=== PATIENT | female | born 1930 | race Caucasian/White ===

== ENCOUNTER 2021-01-23 21:56 | Inpatient (IN) | payer MEDICARE, MEDICAID ==
[~2021-01-23] VITALS: Ht 167.6 cm; Wt 88.9 kg
[2021-01-23 21:57] VITALS: BP 130/48
[2021-01-23] MEDS ORDERED: VITAMIN D325 MC5 PO (22:09)
[2021-01-23] MEDS ORDERED: LISINOPRIL20 MG PO (22:09)
[2021-01-23] MEDS ORDERED: ASA81BEC PO (22:09)
[2021-01-23] MEDS ORDERED: ATORVASTATIN CA80 MG PO (22:09)
[2021-01-23] MEDS ORDERED: CARVEDILOL25 MG PO (22:10)
[2021-01-23] MEDS ORDERED: CLONIDINE HCL0.1 M1 PO (22:10)
[2021-01-23] MEDS ORDERED: NYSTATIN1 EA10 TOP (22:11)
[2021-01-23 22:37] LABS: BE 2.6 mmol/L (-2 to +3); PCO2 48.2 mmHg (35.0-45.0); pH 7.389 (7.340-7.450)
--- NOTE | 2021-01-23 22:46 | NUR ---
LEYDA FROM [facility] CALLED AND REPORT WAS PROVIDED. PT WAS SLEEPING ALL DAY WITH COUGH. PT REFUSED TO EAT OR DRINK FLUIDS. COUGH WORSENED TONIGHT AND PT WAS SENT IN BY PCP. LEYDA CAN BE CONTACTED AT [phone]
[2021-01-23 22:51] LABS: ABSOLUTE BASOPHILS 0.1 thou/uL (0.0-0.2); ABSOLUTE EOSINOPHILS 0.1 thou/uL (0.0-0.7); ABSOLUTE LYMPHOCYTES 1.3 thou/uL (0.8-5.3); ABSOLUTE MONOCYTES 0.6 thou/uL (0.0-1.2); ABSOLUTE NEUTROPHILS 6.4 thou/uL (1.6-8.1); BASOPHILS 0.7 %; EOSINOPHILS 0.7 %; HEMATOCRIT 43.2 % (37.0-47.0); HEMOGLOBIN 14.7 gm/dL (12.0-15.0); LYMPHOCYTES 15.9 %; MCH 29.8 pg (26.0-34.0); MCHC 34.1 g/dL (28.0-37.0); MCV 87.6 fL (80.0-100.0); MONOCYTES 6.6 %; MPV 8.7 fl. (7.2-11.1); NUCLEATED RBCS 0 /100WBC; PLATELET COUNT* 184 thou/uL (150-400); POLYS 76.1 %; RBC 4.93 mil/uL (4.20-5.00); RDW-CV 14.2 % (10.5-14.5); WBC 8.4 thou/uL (4.0-11.0)
[2021-01-23 23:02] LABS: CALCIUM 8.9 mg/dL (8.5-10.1); CREATININE 1.3 mg/dL (0.6-1.3); POTASSIUM 4.2 mmol/L (3.5-5.1)
[2021-01-23 23:12] LABS: ALBUMIN 3.4 g/dL (3.4-5.0); MAGNESIUM 2.1 mg/dL (1.8-2.4); TOTAL BILIRUBIN 0.8 mg/dL (<0.1-1.0); TOTAL PROTEIN 7.7 g/dL (6.4-8.2)
[2021-01-23 23:38] LABS: URINE BILIRUBIN NEGATIVE (Negative); URINE BLOOD 2+ (Negative); URINE CLARITY SL CLOUDY; URINE COLOR YELLOW; URINE GLUCOSE-RANDOM NEGATIVE (Negative); URINE KETONES NEGATIVE (Negative); URINE NITRITE-REFLEX NEGATIVE (Negative); URINE PROTEIN 2+ (Negative); URINE SPECIFIC GRAVITY >= 1.030 (1.005-1.030)
[2021-01-23 23:40] LABS: URINE LEUKOCYTES-REFLEX 2+ (Negative)
[2021-01-24] VITALS (7 sets, daily range): BP systolic 108–175; BP diastolic 37–74
[2021-01-24 00:12] LABS: CASTS None Seen /LPF (None Seen); SQUAMOUS 4-10 Moderate /LPF (0-3)
[2021-01-24 00:13] LABS: URINE RBC 3-10 Few /HPF (0-2); URINE WBC-REFLEX >25 Many /HPF (0-5)
[2021-01-24 00:14] LABS: BACTERIA-REFLEX 1-9 Few /HPF (None Seen); CRYSTALS None Seen /LPF (None Seen)
--- NOTE | 2021-01-24 01:54 | NUR ---
PT ADMITTED TO FLOOR PER CART ACCOMPANIED BY ER STAFF WITH BELONGINGS. PT CONFUSED, AO TO SELF. PULLING OFF OXYGEN AND SLAPPING AT STAFF WHEN APPLYING TELE MONITOR AND GETTING PT TRANSFERRED FROM CART TO BED. CALL LITE IN EASY REACH, BED ALRM ON FOR SAFETY. PT SETTLED SAFELY IN BED, TELE MONITOR ON AND OPERATING AND O2 3L NC ON. WILL CONTINUE TO MONITOR AND PROVIDE CARES NEEDED.
--- NOTE | 2021-01-24 06:45 | NUR ---
NEW ADMIT OVERNIGHT, PULLED OUT IV AND SWATTING AT STAFF WITH CARES UPON ADMISSION BUT MORE COOPERATIVE THIS MORNING. RFA IV FLUIDS INFUSING PER PUMP. INCONTINENT URINE, RUEL CARE GIVEN, BARRIER CREAM APPLIED. ROOM AIR THIS MORNING 92%. TO HAVE VQ SCAN TODAY. TELE SR. CONGESTED COUGH HEARD OCC. CALL LITE IN EASY REACH, BED ALARM ON FOR SAFETY.
[2021-01-24] MEDS ORDERED: CLONIDINE HCL0.1 MG PO (10:10)
--- NOTE | 2021-01-24 18:50 | NUR ---
RECEIVED REPORT. ASSUMED CARE OF PT AROUND 0730. AM ASSESSMENT AND VITALS COMPLETED CHARTED. MED REC COMPLETED AND CONFIRMED WITH NURSE AT [facility]. FAMILY WOULD LIKE FOR PT TO HAVE AN OUTPATIENT REFERRAL FOR AN PARQUET FLOOR LAYER TO HELP MANAGE INSULIN DOSAGES AT THE PRISON. PT CONFUSED AND IMPULSIVE THIS SHIFT, BUT PLEASANT AND REDIRECTABLE. PULLED IV OUT. INCONTINENT OF BOWEL AND BLADDER AT TIMES. GOOD APPETITE THIS AFTERNOON AND EVENING. MOOD AND AWARENESS IMPROVED THROUGHOUT THE SHIFT. PT REFUSED VQ SCAN THIS AM. UPDATE GIVEN TO PT'S [facility] BY DR NIXON AND THIS RN. FILM WAXER IN PLACE. FALL PRECAUTIONS IN PLACE. CALL LIGHT WITHIN REACH.
--- NOTE | 2021-01-25 05:20 | NUR ---
PT SLEPT MOST OF SHIFT. ASSESSMENT DOCUMENTED. MEDS GIVEN PER E-SEP. IV PATENT, FLUIDS INFUSING. NO REPORTS OF PAIN. PT IMPULSIVE THROUGH SHIFT, CLIMBING OUT OF BED. FALL PRECAUTIONS IN PLACE. WILL CONTINUE WITH PLAN OF CARE.
[2021-01-25 05:36] LABS: ALBUMIN 2.8 g/dL (3.4-5.0); CALCIUM 8.1 mg/dL (8.5-10.1); CREATININE 1.6 mg/dL (0.6-1.3); MAGNESIUM 2.2 mg/dL (1.8-2.4); TOTAL BILIRUBIN 0.3 mg/dL (<0.1-1.0); TOTAL PROTEIN 6.8 g/dL (6.4-8.2)
[2021-01-25 07:17] LABS: HEMATOCRIT 39.3 % (37.0-47.0); HEMOGLOBIN 12.9 gm/dL (12.0-15.0); MCH 28.9 pg (26.0-34.0); MCHC 32.9 g/dL (28.0-37.0); MCV 87.8 fL (80.0-100.0); RBC 4.48 mil/uL (4.20-5.00); RDW-CV 14.2 % (10.5-14.5); WBC 11.6 thou/uL (4.0-11.0)
[2021-01-25 08:54] VITALS: BP 133/52
--- NOTE | 2021-01-25 09:55 | EKG ---
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1930 Requested By: Tyra Gomez Order Number: [id number] MD: Tonio Jimenez Measurements Intervals [place] Rate: 71 P: 26 SD: 171 QRS: -110 QRSD: 153 T: -8 QT: 422 QTc: 459 Interpretive Statements Sinus rhythm Ventricular premature complex Probable left atrial enlargement Right bundle branch block Inferior infarct, old No previous ECG available for comparison Electronically Signed On 01-25-2021 9:55:18 CDT by Tonio Jimenez [email or web address] <ELECTRONICALLY SIGNED> By: Tonio Jimenez MD, [facility] 01/25/21 0955 11 11 Tonio Jimenez MD, [facility] /EPI
[2021-01-25 12:17] VITALS: BP 118/58
--- NOTE | 2021-01-25 14:42 | 2DMMODE ---
[place] [address] 2 D/M-MODE ECHOCARDIOGRAM Name: FRIDA LOWERY Room: [address] IN .R.#: [id number] Admission: 01/23/21 Attend Phys: Adali Herring, Discharge: Date of : [birth year] Date of Service: 01/25/21 1442 Report #: [id number] THIS REPORT FOR: cc: Giuseppe Howard MD, Michael H. MD Blick, David R. MD [facility] ~ APPROVED REPORT Study performed: 01/25/2021 10:14:18 EXAM: Comprehensive 2D, Doppler, and color-flow Echocardiogram Patient Location: Out-Patient BSA: 1.96 HR: 72 bpm BP: 125/40 mmHg Other Information Study Quality: Good Indications Elevated BNP 2D Dimensions IVSd: 16.88 (7-11mm) LVOT Diam: 20.89 (18-24mm) LVDd: 50.76 mm PWd: 12.14 (7-11mm) Ascending Ao: 32.42 (22-36mm) LVDs: 32.99 (25-40mm) Aortic Root: 33.99 mm Volumes Left Atrial Volume (Systole) LA ESV Index: 20.30 mL/m2 Aortic Valve AoV Peak Siddhartha.: 1.75 m/s AO Peak Gr.: 12.22 mmHg LVOT Max P.67 mmHg AO Mean Gr.: 6.40 mmHg LVOT Mean P.71 mmHg LVOT Max V: 0.96 m/s AO V2 VTI: 36.65 cm LVOT Mean V: 0.60 m/s KELECHI (VTI): 1.69 cm2 LVOT V1 VTI: 18.05 cm Mitral Valve E/A Ratio: 0.72 [place] [address] 2 D/M-MODE ECHOCARDIOGRAM Name: FRIDA LOWERY Vangie Room: [address] IN [facility]#: [id number] Admission: 01/23/21 Attend Phys: Adali Herring, Discharge: Date of : [birth year] Date of Service: 01/25/21 1442 Report #: [id number] MV Decel. Time: 329.44 ms MV E Max Siddhartha.: 0.85 m/s MV PHT: 95.54 ms MVA (PHT): 2.30 cm2 TDI E/Lateral E': 10.63 E/Medial E': 9.44 Medial E' Siddhartha.: 0.09 m/s Lateral E' Siddhartha.: 0.08 m/s Pulmonary Valve PV Peak Siddhartha.: 1.21 m/s PV Peak Gr.: 5.89 mmHg Tricuspid Valve RAP Estimate: 5.00 mmHg TR Peak Gr.: 27.11 mmHg RVSP: 32.11 mmHg PA Pressure: 32.11 mmHg Left Ventricle The left ventricle is normal size. There is normal LV segmental wall motion. Mild concentric left ventricular hypertrophy. Left ventricular systolic function is normal. The left ventricular ejection fraction is within the normal range. LVEF is 55-60%. Grade I - abnormal relaxation pattern. Right Ventricle The right ventricle is normal size. The right ventricular systolic function is normal. Atria The left atrium size is normal. The right atrium size is normal. Aortic Valve Aortic valve is mildly calcified. No aortic regurgitation is present. There is no aortic valvular stenosis. Mitral Valve The mitral valve is normal in structure. Mild mitral regurgitation. No evidence of mitral valve stenosis. Tricuspid Valve The tricuspid valve is normal in structure. Mild tricuspid regurgitation[place] [address] 2 D/M-MODE ECHOCARDIOGRAM Name: FRIDA LOWERY Room: [address] IN [facility]#: [id number] Admission: 01/23/21 Attend Phys: Adali Herring, Discharge: Date of : [birth year] Date of Service: 01/25/21 1442 Report #: [id number] The pulmonary valve is normal in structure. There is no pulmonic valvular regurgitation. Great Vessels The aortic root is normal in size. IVC is normal in size and collapses >50% with inspiration. Pericardium There is no pericardial effusion. <Conclusion> Mild concentric left ventricular hypertrophy. LVEF is 55-60%. Aortic valve is mildly calcified. Mild mitral regurgitation. <ELECTRONICALLY SIGNED> By: Tonio Jimenez MD, [facility] 01/25/21 1442 1442 144 Tonio Jimenez MD, FACC /INF
[2021-01-25 16:34] VITALS: BP 126/50
--- NOTE | 2021-01-25 16:50 | NUR ---
hilda completed the initial assessment. hilda s/w pt's granddtr, sena as pt is a poor historian d/t dementia dx. pt resides at [facility] in [place], as of 2020. prior to that pt lives w/her dtr, who 4 months ago. pt uses a walker for gait, but "doesnt get around very well." /sena. pt requires assistance w/adls. pt to rtrn to ltc facility at d/c.
[2021-01-25 19:30] VITALS: BP 171/82
--- NOTE | 2021-01-26 05:19 | NUR ---
PT SLEPT ON AND OFF THIS SHIFT. ASSESSMENT DOCUMENTED. MEDS GIVEN PER E-SEP. IV PATENT, FLUIDS FINISHED INFUSING. FALL PRECAUTIONS IN PLACE. PT VERY IMPULSIVE THIS SHIFT, CLIMBING OUT OF BED, HARD TO REDIRECT. WILL CONTINUE WITH PLAN OF CARE.
[2021-01-26 08:00] VITALS: BP 179/69
--- NOTE | 2021-01-26 12:37 | NUR ---
POC IS CONTINUED HOSPITALIZATION D/T PNEUMONIA AND UTI DX. THE CURRENT PLAN IS FOR PT TO RTRN TO [facility] [place].
--- NOTE | 2021-01-26 14:31 | NUR ---
THIS PUBLIC HEALTH DIRECTOR IS IN AGREEMENT WITH DOCUMENTED NOTE AND RECOMMENDATIONS BY [employer]ON[employer] FOR THIS DAY. PIYUSH GARRETTT
[2021-01-26 16:32] VITALS: BP 114/50
--- NOTE | 2021-01-26 18:04 | NUR ---
PT PROGRESSING TOWARDS DC GOALS. PT DENIES PAIN. PT UP WITH SBA TO HER RECLINER. PT CONTINUES TO BE IMPULSIVE JUST GETTING UP WHEN EVER SHE WANTS. PT HAS SALINE LOCK IN HER LEFT FOREARM FLUSHES WELL, DRESSING C/D/I. PT VERY SAVOONGA. VSS AFEBRILE. WILL CONTINUE TO MONITOR PLAN OF CARE.
[2021-01-26 19:45] VITALS: BP 116/89
--- NOTE | 2021-01-27 04:58 | NUR ---
PT ORIENTED TO SELF, FORGETFUL AND IMPULSIVE. 2L NC BUT PT DOES NOT KEEP IT ON. MEDS GIVEN ORDERED. NO C/O PAIN. INCONTINENT MOST OF THE TIME. UP TO BSC WITH MAX ASSIST. BED ALARM ON FOR SAFETY. CALL LIGHT WITHIN REACH.
[2021-01-27 05:07] LABS: HEMATOCRIT 38.5 % (37.0-47.0); HEMOGLOBIN 12.8 gm/dL (12.0-15.0); MCH 29.1 pg (26.0-34.0); MCHC 33.2 g/dL (28.0-37.0); MCV 87.7 fL (80.0-100.0); MPV 9.5 fl. (7.2-11.1); RBC 4.39 mil/uL (4.20-5.00)
[2021-01-27 05:11] LABS: CALCIUM 8.1 mg/dL (8.5-10.1); CREATININE 1.1 mg/dL (0.6-1.3); POTASSIUM 4.3 mmol/L (3.5-5.1)
[2021-01-27 05:23] VITALS: BP 142/72
[2021-01-27 08:30] VITALS: BP 149/71
[2021-01-27 12:06] VITALS: BP 155/50
--- NOTE | 2021-01-27 13:07 | NUR ---
POC" ID FOLLOWING D/T UTI WITH ESBL. PT MAY D/C BACK TO [facility] W/PO ABX TODAY PENDING ID'S RECOMMENDATION.
[2021-01-27 16:00] VITALS: BP 158/64
[2021-01-27 19:45] VITALS: BP 165/78
[2021-01-28 04:09] LABS: HEMOGLOBIN 12.4 gm/dL (12.0-15.0); MCH 29.1 pg (26.0-34.0); MCHC 33.5 g/dL (28.0-37.0); MCV 86.8 fL (80.0-100.0); MPV 9.2 fl. (7.2-11.1); RBC 4.26 mil/uL (4.20-5.00); WBC 8.6 thou/uL (4.0-11.0)
[2021-01-28 04:16] LABS: CALCIUM 7.9 mg/dL (8.5-10.1); CREATININE 1.2 mg/dL (0.6-1.3); POTASSIUM 4.5 mmol/L (3.5-5.1)
--- NOTE | 2021-01-28 06:21 | NUR ---
PT SLEPT OFF AND ON OVERNIGHT, AO TO SELF, CAN BE IMPULSIVE AND COMBATIVE AT TIMES WITH CARES. SETTING BED ALRM OFF TRYING TO GET OOB TO GO TO BSC AT TIMES OVERNIGHT. UP WITH 2 ASSIST GB TO BSC. INCONTINENT URINE AT TIMES. HS ACCUCHECK 243, INSULIN GIVEN. O2 3L NC PT WILL ALLOW. AM LABS. RFA SL IV, ABX GIVEN ORDERED. PT TURNS INDEP IN BED, HIGH FALL RISK, FALL PRECAUTIONS IN PLACE. TAKES PILLS WHOLE WITH WATER. MED SURG STATUS, WILL BE TRANSFERRING TO ROOM 304 THIS MORNING. ID FOLLOWING FOR ABX TO TREAT ESBL URINE.
--- NOTE | 2021-01-28 07:29 | NUR ---
PATIENT TRANSFERED TO [place] FROM TELEMETRY AT [facility] [address]. REPORT GIVEN FROM NURSE SOLIS ON TELEMETRY. PATIENT ALERT TO SELF BUT HAS DEMENTIA. PATIENT RESTING COMFORTABLY IN ROOM. NURSE AGREES WITH ASSESSMENT. REPORT GIVEN TO DAY 3 [place] NURSE ORDAZ THAT WILL BE TAKING CARE OF PATIENT TODAY. FALL PRECAUTIONS IN PLACE AND NURSING TO CONTINUE MONITORING.
[2021-01-28 08:00] VITALS: BP 168/68
--- NOTE | 2021-01-28 12:54 | NUR ---
POC: WEAN O2 OR PT WILL NEED RES & EXERCISE OXIMETRY TO DETERMINE O2 NEEDS. PT WILL RTRN TO [facility].
[2021-01-28 16:18] VITALS: BP 150/66
--- NOTE | 2021-01-28 18:00 | NUR ---
PATIENT RESTING IN BED. PATIEN TIS UP STANDBY ASSIST. PATIENT IS IMPULSIVE AND HAS SET OFF BED ALARM MULTIPLE TIMES THROUGHOUT DAY. PATIENT IS INCONTINENT OF URINE. PATIENT HAS GOOD APPETITE, MEAL SETUP IS REQUIRED. PATIENT DENIES ANY PAIN. BED/CHAIR ALARMS SET. CALL LIGHT WITHIN REACH, HOWEVER HAS NOT USED. WILL CONTINEU TO MONITOR.
[2021-01-28 20:00] VITALS: BP 119/73
[2021-01-29 03:43] LABS: HEMOGLOBIN 12.8 gm/dL (12.0-15.0); MCH 29.3 pg (26.0-34.0); MCHC 33.6 g/dL (28.0-37.0); MCV 87.3 fL (80.0-100.0); MPV 8.8 fl. (7.2-11.1); RBC 4.35 mil/uL (4.20-5.00); RDW-CV 13.9 % (10.5-14.5); WBC 9.3 thou/uL (4.0-11.0)
[2021-01-29 04:00] LABS: ANION GAP < 0 mmol/L (7-16); BUN 36 mg/dL (7-18); CHLORIDE 106 mmol/L (98-107); CO2 35 mmol/L (21-32); CREATININE 1.1 mg/dL (0.6-1.3); GLUCOSE 160 mg/dL (70-99); POTASSIUM 4.4 mmol/L (3.5-5.1); SODIUM 140 mmol/L (136-145)
--- NOTE | 2021-01-29 05:15 | NUR ---
PT HAS SLEPT WELL OVERNIGHT, AWAKENS TRYING TO GET OOB TO USE BSC SETTING OFF BED ALARM. O2 3L NC. ACCUCHECK 218 INSULIN GIVEN ORDERED. INCONTINENT URINE AT TIME, RUEL CARE GIVEN. AM LABS. UP WITH ASSIST TO BSC. CONGESTED COUGH HEARD AT TIMES. KLETSEL DEHE W[place].RFA SL, ABX GIVEN ORDERED. CALL LITE IN EASY REACH, BED ALRM ON FOR SAFETY.
[2021-01-29 07:50] VITALS: BP 199/91
--- NOTE | 2021-01-29 08:51 | NUR ---
I have reviewed the documentation by SAE SU from 01/25/21 to 01/29/21 and I concur with it. SERGIO CHENG
[2021-01-29] MEDS ORDERED: BACTRIM DS TAB1 EACH PO (13:16)
[2021-01-29] MEDS ORDERED: PREDNISONE 20 M20 MG PO (13:16)
[2021-01-29] MEDS ORDERED: PEPCID20 MG PO (13:16)
--- NOTE | 2021-01-29 15:52 | NUR ---
LYNDSEY FAXED D/C ORDERS, O2 ORDER AND OXIMETRY NOTES TO [facility]. LYNDSEY SPK WITH LEYDA, "SPAR CAP BEVELER" AND MARIAMA PT'S RN TO INFORM OF O2 NEEDS AND DR. HANNON REQUEST TO HAVE [facility] SET UP OUTPATIENT OXIMETRY URGENTLY FOR PT. LYNDSEY ALSO CONTACTED PT'S GRANDDTR, ODALYS, AND INFORMED HER OF THE AFOREMENTIONED INFO. MARIAMA CONFIRMED SHE HAS O2 AND CONCENTRATOR AND TUBING IN PT ROOM AWAITING HER. LYNDSEY ARRANGED W/C AND O2 TRANSPORTATION WITH [facility]. ARNULFO CONFIRMED TRANSPORTATION BTWN [phone]. LYNDSEY NOTIFED US OF TIME. PT RN, SUSHMA, PROVIDED NUMBER TO CALL REPORT [phone]. FAX [phone]. US TO MAKE CHART COPY.
[2021-01-29 16:56] VITALS: BP 186/74
--- NOTE | 2021-01-29 18:15 | NUR ---
PATIENT DISCHARGED TO [facility]. REPORT CALLED TO [facility]. COPY OF CHART AND DISCHARGE ORDERS SENT WITH TRANSPORTER. PATIENT BELONGINGS PACKED. IV REMOVED. PATIENT ASSISTED TO WHEELCHAIR. PATIENT LEFT BY WHEELCHAIR VAN AT THIS TIME.
== END 2021-01-29 18:15 | DRG 177 ==
LOC: M.ERS 21:56 → M.2W 23:54 → M.TBA-ER 23:54 → M.2W 01-24 01:16 → M.3W 01-28 07:07 → M.2W 01-28 18:01
PROVIDERS: Emergency Medicine; Family Medicine; ADMIT Internal Medicine; ATTEND Internal Medicine
DX: J15.6 Pneumonia due to other Gram-negative bacteria (principal); G92 Toxic encephalopathy; K85.90 Acute pancreatitis without necrosis or infection, unspecified; J96.01 Acute respiratory failure with hypoxia; J44.1 Chronic obstructive pulmonary disease with (acute) exacerbation; N30.00 Acute cystitis without hematuria; Z16.12 Extended spectrum beta lactamase (ESBL) resistance; N17.9 Acute kidney failure, unspecified; I25.10 Atherosclerotic heart disease of native coronary artery without angina pectoris; R73.9 Hyperglycemia, unspecified; I50.9 Heart failure, unspecified; I11.0 Hypertensive heart disease with heart failure; Z20.822 Contact with and (suspected) exposure to COVID-19; B96.89 Other specified bacterial agents as the cause of diseases classified elsewhere; E66.01 Morbid (severe) obesity due to excess calories; Z68.31 Body mass index [BMI] 31.0-31.9, adult; Z79.899 Other long term (current) drug therapy